=== PATIENT | male | born 1970 | race Caucasian/White ===

== ENCOUNTER → 2023-09-12 06:35 | Day surgery (SDC) | payer BC, SELFPAY | LOC: GI 06:35 | PROVIDERS: ATTENDING PHYSICIAN Internal Medicine Gastroenterology | DX: Z12.11 Encounter for screening for malignant neoplasm of colon (principal); Z83.719 Family history of colon polyps, unspecified; K64.9 Unspecified hemorrhoids; D12.4 Benign neoplasm of descending colon | CPT/HCPCS: 45385; 88305 ==

== ENCOUNTER → 2024-05-22 08:10 | Outpatient (REF) | payer BC, SELFPAY | LOC: RAD 08:10 | PROVIDERS: ATTENDING PHYSICIAN Family Medicine Sports Medicine | DX: M51.360 Other intervertebral disc degeneration, lumbar region with discogenic back pain only (principal) | CPT/HCPCS: 72110 ==

== ENCOUNTER → 2024-06-05 10:32 | Outpatient (REF) | payer BC, SELFPAY | LOC: RAD 10:32 | PROVIDERS: ATTENDING PHYSICIAN Family Medicine Sports Medicine | DX: Z77.018 Contact with and (suspected) exposure to other hazardous metals (principal) | CPT/HCPCS: 70030 ==

== ENCOUNTER → 2024-06-09 08:07 | Outpatient (REF) | payer BC, SELFPAY | LOC: MRI 3T 08:07 | PROVIDERS: ATTENDING PHYSICIAN Family Medicine Sports Medicine | DX: M54.50 Low back pain, unspecified (principal) | CPT/HCPCS: 72148 ==

== ENCOUNTER 2024-06-12 13:23 | Emergency (ER) | payer BC, SELFPAY ==
[2024-06-12 13:30] VITALS: BP 183/88; BMI 31.4
[2024-06-12 13:58] LABS: % Basophils 0.8 % (0-2); % Eosinophils 1.2 % (0-6); % Immature Granulocytes 0.2 % (0-0.5); % Lymphocytes 35.2 % (20.5-51.1); % Monocytes 8.7 % (1.7-9.3); % Neutrophils 53.9 % (42.2-75.2); Absolute Basophils 0.1 10^3/uL (0-0.2); Absolute Eosinophils 0.1 10^3/uL (0-0.7); Absolute Lymphocytes 2.3 10^3/uL (1.2-3.4); Absolute Monocytes 0.6 10^3/uL (0.1-0.6); Absolute Neutrophils 3.5 10^3/uL (1.4-6.5); Hematocrit 39.1 % (39.0-52.0); Hemoglobin 13.6 g/dL (13.0-18.0); Mean Corp Hgb Conc. 34.8 g/dL (33.0-37.0); Mean Corpuscular Hgb 31.6 pg (27.0-31.0); Mean Corpuscular Volume 90.7 fL (80.0-94.0); Mean Platelet Volume 11.2 fL (7.4-10.4); Nucleated Red Blood Cells % 0 % (-); Platelet Count 218 10^3/uL (130-400); Red Blood Cell Count 4.31 10^6/uL (4.70-6.10); Red Cell Dist. Width 13.1 % (11.5-14.5); White Blood Cell Count 6.4 10^3/uL (4.8-10.8)
[2024-06-12 14:13] LABS: ALT (SGPT) 29 U/L (0-50); AST (SGOT) 29 U/L (17-59); Albumin 4.5 g/dl (3.5-5.0); Alkaline Phosphatase 73 U/L (38-126); Blood Urea Nitrogen 21 mg/dl (9-20); Calcium 9.7 mg/dl (8.4-10.2); Carbon Dioxide 27 mmol/L (22-30); Chloride 107 mmol/L (98-107); Estimated Creatinine Clearance 94 ml/min; Glucose 104 mg/dl (70-99); Potassium 4.6 mmol/L (3.5-5.1); Sodium 141 mmol/L (135-145); Total Bilirubin 0.5 mg/dl (0.2-1.3); Total Protein 7.5 g/dl (6.3-8.2); eGFR > 60.00
[2024-06-12 14:14] VITALS: BP 132/82
[2024-06-12 14:16] LABS: Troponin I < 0.012 ng/ml
--- NOTE | 2024-06-12 15:07 | ED.GENMED ---
History of Present Illness
General
Chief Complaint: Chest Pain
Time Seen by Provider: 06/12/24 13:51
History of Present Illness
History of Present Illness:
54-year-old male with history of hypertension presents to the emergency department for evaluation of intermittent chest discomfort ongoing for the past 3 to 4 days. Denies any exertional component. Pain seems to wax and wane without obvious
provocation or palliation. He has minimal chest pressure at present. Describes it as a tightness sensation. No positional worsening or pleuritic worsening. Does report occasional shortness of breath but does not note any worsening of his
exercise tolerance. Prior history of similar symptoms worked up in 2018 at [facility], patient states he underwent a cardiac catheterization that was completely clean. He has not followed up with a private duty lpn in several years. No
fevers, chills, sweats, coughing, nasal congestion
Past History
Past History
ED Past Medical History: None
ED Past Surgical History: None
Social History
Tobacco: Non-smoker
Alcohol: None
Review of Systems
Review of Systems
Allergies reviewed?: Yes
All Other Systems: ROS reviewed and negative except as documented in HPI and ROS
Phy Exam
Physical Exam
Physical Exam:
GEN: Well appearing, NAD, WDWN
HEENT: Oral mucosa moist, no scleral icterus
Cardiac: Regular rate and rhythm, no murmurs
Lung: No respiratory distress, no tachypnea, lungs clear to auscultation bilaterally
MSK: No gross deformity or injuries
Skin: Good color, no pallor or jaundice, no rashes
Neuro: AO x3, moves all extremities freely
Psych: Calm, cooperative
Scores
Heart Score for Chest Pain Patients
STEMI patient?: No
History: Moderately Suspicious
ECG: Normal
Age: >45 - <65 years
Risk Factors: 1 or 2 Risk Factors
Troponin: </= Normal Limit
Heart Score for Chest Pain Patients: 3
Heart Score Risk: 2.5% MACE over next 6 weeks
Course
Orders/Labs/Results
Orders:
Orders
06/12/24 13:24
EKG [Electrocardiogram (*1)] Urgent
Reason for Study: Chest Pain
EKG- Treatment ONCE
06/12/24 13:36
Electrocardiogram (*1) Urgent
Reason for Study: Chest Pain
Cardiac Monitoring- Treatment ONCE
EKG- Treatment ONCE
IV Insert/Care/Rem.- Treatment PRN
O2 Therapy [RESP] Urgent
Titrate/Wean O2 to maintain O2 sat greater than (%): 90
Special Instructions: Maintain sats >/=90%
Pulse Ox/spot Check [RESP] Urgent
Quantity: 1
Special Instructions: ON ROOM AIR
06/12/24 13:44
Complete Blood Count/With Diff Urgent
Comprehensive Metabolic Panel Urgent
Troponin I Urgent
06/12/24 14:15
CR Chest - 2 Views Urgent
Comment:
Reason For Exam: chest pain
Abnormal Lab Results
06/12/24
13:44
RBC 4.31 L 10^6/uL
(4.70-6.10)
MCH 31.6 H pg
(27.0-31.0)
MPV 11.2 H fL
(7.4-10.4)
BUN 21 H mg/dl
(9-20)
Glucose 104 H mg/dl
(70-99)
06/12/24 13:44
06/12/24 13:44
Vital Signs
Initial and Last Documented VS:
Initial Vital Signs
Pulse Resp BP Pulse Ox
58 18 183/88 99
06/12/24 13:30 06/12/24 13:30 06/12/24 13:30 06/12/24 13:30
Last Documented Vital Signs
Pulse Resp BP Pulse Ox
65 15 132/82 99
06/12/24 14:15 06/12/24 14:15 06/12/24 14:14 06/12/24 14:15
MDM/Problems Addressed
MDM/Problems Addressed:
Patient's workup is reassuring. Chest x-ray shows no acute abnormalities. EKG is nonischemic and troponin is negative. He is low to moderate risk for cardiovascular disease based on heart score thus is suitable for outpatient management with
close cardiology follow-up. Do not see any indication to admit the patient. Doubt pulmonary embolism given stable vital signs and lack of pleuritic pain. No infectious signs or symptoms
Comment
Comment:
EKG independently interpreted by me shows a sinus bradycardia at a rate of [address] changes concerning for ischemia
*Critical Care Note
Total Time (30-74mins, 75-104mins- exclusive of procedures): Not Applicable
ED Attending Note
-
Portions of this chart may have been created with voice recognition software.� Occasional wrong word or��sound alike� substitutions may have occurred due to the inherent limitations of voice recognition software.
Discharge Plan
Departure
Patient Disposition: Home (Routine Discharge)
Date of Disposition: 06/12/24
Time of Disposition: 15:07
Patient with high blood pressure during this ER visit?: No
Discharge Problem:
Chest pain
Instructions: Chest Pain DCA Follow Up
Prescriptions:
No Action
amoxicillin-pot clavulanate 875-125 mg tablet
1 tab PO BID Qty: 20 0RF
Referrals:
Julio Urena DO [Family Provider] -
Interventions
Interventions:
*Risk Screen - Suicide Last Done: 06/12/24 13:30
*General Assessment Last Done: 06/12/24 14:10
*Neglect/Abuse Screening Last Done: 06/12/24 14:10
ED- Fall Risk Assessment Last Done: 06/12/24 14:10
*ED COVID-19 Vaccine History Last Done: 06/12/24 13:30
ED- Cardiac Assessment Last Done: 06/12/24 14:10
Discharge Date and Time
Print Language: TURKISH
== END 2024-06-12 15:00 | disposition home or self-care (01) ==
LOC: EMR 13:23
PROVIDERS: Emergency Medicine; EMERGENCY PHYSICIAN Emergency Medicine; FAMILY PHYSICIAN Family Medicine Sports Medicine
DX: R07.89 Other chest pain (principal); R06.02 Shortness of breath; Z88.0 Allergy status to penicillin; Z91.013 Allergy to seafood
CPT/HCPCS: 99285; 94760; 71046; 80053; 84484; 85025; 93005

== ENCOUNTER → 2024-06-21 07:03 | Outpatient (REF) | payer BC, SELFPAY | LOC: HWRCS 07:03 | PROVIDERS: ATTENDING PHYSICIAN Internal Medicine Cardiovascular Disease; FAMILY PHYSICIAN Family Medicine Sports Medicine | DX: R07.89 Other chest pain (principal) | CPT/HCPCS: 93306 ==

== ENCOUNTER → 2024-06-23 08:59 | Outpatient (REF) | payer BC, SELFPAY | LOC: RCS 08:59 | PROVIDERS: ATTENDING PHYSICIAN Internal Medicine Cardiovascular Disease; FAMILY PHYSICIAN Family Medicine Sports Medicine | DX: R07.89 Other chest pain (principal) | CPT/HCPCS: 93017; 93350 ==

== ENCOUNTER → 2024-08-10 07:38 | Outpatient (REF) | payer BC, SELFPAY | LOC: HWRAD 07:38 | PROVIDERS: ATTENDING PHYSICIAN Internal Medicine Cardiovascular Disease; FAMILY PHYSICIAN Family Medicine Sports Medicine | DX: E78.2 Mixed hyperlipidemia (principal) | CPT/HCPCS: 75571 ==

== ENCOUNTER 2024-08-26 05:55 | Outpatient (RCR) | payer BC, SELFPAY | END 2024-08-26 23:59 | disposition home or self-care (01) | LOC: RPT 05:55 | PROVIDERS: ATTENDING PHYSICIAN Family Medicine Sports Medicine | DX: M51.16 Intervertebral disc disorders with radiculopathy, lumbar region (principal); Z73.6 Limitation of activities due to disability; M79.605 Pain in left leg; M41.9 Scoliosis, unspecified | CPT/HCPCS: 97110; 97112; 97161 ==

== ENCOUNTER 2024-09-21 18:10 | Outpatient (RCR) | payer BC, SELFPAY | END 2024-09-21 23:59 | disposition home or self-care (01) | LOC: RPT 18:10 | PROVIDERS: ATTENDING PHYSICIAN Family Medicine Sports Medicine | DX: M51.16 Intervertebral disc disorders with radiculopathy, lumbar region (principal); Z73.6 Limitation of activities due to disability; M79.605 Pain in left leg; M41.9 Scoliosis, unspecified | CPT/HCPCS: 97110; 97112; 97530 ==

== ENCOUNTER 2024-10-05 18:15 | Outpatient (RCR) | payer BC, SELFPAY | END 2024-10-05 23:59 | disposition home or self-care (01) | LOC: RPT 18:15 | PROVIDERS: ATTENDING PHYSICIAN Family Medicine Sports Medicine | DX: M51.16 Intervertebral disc disorders with radiculopathy, lumbar region (principal); Z73.6 Limitation of activities due to disability; M79.605 Pain in left leg; M41.9 Scoliosis, unspecified | CPT/HCPCS: 97110; 97112; 97530 ==

== ENCOUNTER 2024-11-02 18:05 | Outpatient (RCR) | payer BC, SELFPAY | END 2024-11-02 23:59 | disposition home or self-care (01) | LOC: RPT 18:05 | PROVIDERS: ATTENDING PHYSICIAN Family Medicine Sports Medicine | DX: M51.16 Intervertebral disc disorders with radiculopathy, lumbar region (principal); Z73.6 Limitation of activities due to disability; M79.605 Pain in left leg; M41.9 Scoliosis, unspecified | CPT/HCPCS: 97110; 97112; 97530 ==

== ENCOUNTER → 2025-01-18 07:39 | Outpatient (REF) | payer BC, SELFPAY | LOC: HWRAD 07:39 | PROVIDERS: ATTENDING PHYSICIAN Internal Medicine Critical Care Medicine; FAMILY PHYSICIAN Family Medicine Sports Medicine | DX: R91.1 Solitary pulmonary nodule (principal) | CPT/HCPCS: 71250 ==